=== PATIENT | male | born 2000 | race Caucasian/White ===

== ENCOUNTER 2023-11-15 08:03 | Emergency (ER) | payer OTHER ==
[~2023-11-15] VITALS: Ht 172.7 cm; Wt 111.1 kg
[2023-11-15 08:08] VITALS: BP 131/92; PULSE 73; RESP 16; TEMP 98; O2SAT 100
[2023-11-15 08:34] VITALS: BP 131/92; PULSE 73; RESP 16; TEMP 98; O2SAT 100
[2023-11-15] MEDS: ACETAMINOPHEN 325 MG TAB PO ONE (09:16)
[2023-11-15] MEDS: KETOROLAC 30 MG/ML VIAL IM ONE (09:17)
[2023-11-15] MEDS ORDERED: IBUP-2213 PO (09:27)
== END 2023-11-15 09:58 | disposition home or self-care (01) ==
LOC: MED 08:03
DX: S93.492A Sprain of other ligament of left ankle, initial encounter (principal); X58.XXXA Exposure to other specified factors, initial encounter; Y93.89 Activity, other specified; Y92.89 Other specified places as the place of occurrence of the external cause; Y99.8 Other external cause status
CPT/HCPCS: 73610; 96372; 99283; J1885